=== PATIENT | female | born 1960 | race Caucasian/White ===

== ENCOUNTER 2020-06-03 20:32 | Inpatient (IN) | payer BC ==
[2020-06-03] MEDS ORDERED: Diltiazem 25 MG/5 ML SDV IVPUSH ONE (20:59)
--- NOTE | 2020-06-03 21:17 | EDM.PDOC ---
ED HPI GENERAL MEDICAL PROBLEM - General Chief Complaint: Cardiovascular Problem Stated Complaint: TROUBLE BREATHING Time Seen by Provider: 06/03/20 20:45 Source of Information: Reports: Patient History Limitations: Reports: No Limitations - History of Present Illness INITIAL COMMENTS - FREE TEXT/NARRATIVE: This 59 yo female patient reports to the ED due to increased shortness of breath throughout the day. The patient reports her symptoms have gotten much worse this evening. The patient reports she recently had radiation treatment for breast cancer through [facility] in [place]. Onset: Today Duration: Constant Location: Reports: Chest Quality: Reports: Other Severity: Moderate Improves with: Reports: None Worsens with: Reports: None Context: Reports: Other Associated Symptoms: Reports: Shortness of Breath - Related Data Allergies Allergy/AdvReac Type Severity Reaction Status Date / Time ciprofloxacin Allergy Unknown Hives Verified 06/03/20 21:34 levofloxacin [From Levaquin] Allergy Unknown UNKNOWN Verified 06/03/20 21:34 telithromycin Allergy Unknown Hives Verified 06/03/20 21:34 Home Meds: Home Meds metFORMIN [Glucophage] 12/05/14 [History] Albuterol Sulfate [Proair Hfa] 08/17/18 [History] Fluticasone Furoate [Arnuity Ellipta] 08/17/18 [History] Insulin Aspart [NovoLOG] 08/17/18 [History] Insulin Glarg,Human.Rec.Analog [Lantus Solostar] 08/17/18 [History] Irbesartan 08/17/18 [History] Simvastatin 08/17/18 [History] Aspirin 81 mg PO 06/03/20 [History] Letrozole 06/03/20 [History] Semaglutide [Ozempic] 06/03/20 [History] Simvastatin 40 mg PO 06/03/20 [History] Past Medical History Cardiovascular History: Reports: High Cholesterol, Hypertension Respiratory History: Reports: Asthma Endocrine/Metabolic History: Reports: Diabetes, Type II - Past Surgical History Female Surgical History: Reports: Hysterectomy Social & Family History - Family History Family Medical History: No Pertinent Family History ED ROS GENERAL - Review of Systems Review Of Systems: Comprehensive ROS is negative, except as noted in HPI. ED EXAM, GENERAL - Physical Exam Exam: See Below Exam Limited By: No Limitations General Appearance: Alert, WD/WN, Moderate Distress, Obese Eye Exam: Bilateral Eye: EOMI, Normal Inspection, PERRL Ears: Normal External Exam, Normal Canal, Hearing Grossly Normal, Normal TMs Nose: Normal Inspection, Normal Mucosa, No Blood Throat/Mouth: Normal Inspection, Normal Lips, Normal Teeth, Normal Gums, Normal Oropharynx, Normal Voice, No Airway Compromise Head: Atraumatic, Normocephalic Neck: Normal Inspection, Supple, Non-Tender, Full Range of Motion Respiratory/Chest: No Respiratory Distress, Lungs Clear, Normal Breath Sounds, No Accessory Muscle Use, Chest Non-Tender Cardiovascular: Tachycardia, Irregularly Irregular GI/Abdominal: Normal Bowel Sounds, Soft, Non-Tender, No Organomegaly, No Distention, No Abnormal Bruit, No Mass (Female) Exam: Deferred Rectal (Female) Exam: Deferred Back Exam: Normal Inspection, Full Range of Motion, NT Extremities: Normal Inspection, Normal Range of Motion, Non-Tender, Normal Capillary Refill, No Pedal Edema Neurological: Alert, Oriented, CN II-XII Intact, Normal Cognition, Normal Gait, Normal Reflexes, No Motor/Sensory Deficits Psychiatric: Normal Affect, Normal Mood Skin Exam: Warm, Dry, Intact, Normal Color, No Rash Lymphatic: No Adenopathy #1 Interpretation EKG Date: 06/03/20 Time: 20:44 Rhythm: A-Fib [place]: Normal P-Wave: Variable QRS: Normal ST-T: Normal QT: Normal Comparison: NA - No Prior EKG EKG Interpretation Comments: Intermittent A. Fib with RVR Course - Vital Signs Last Recorded V/S: Last Vital Signs Temp 36.5 C 06/03/20 20:37 Pulse 74 06/03/20 20:37 Resp 26 H 06/03/20 20:37 BP 129/110 H 06/03/20 20:37 Pulse Ox 97 06/03/20 20:37 - Orders/Labs/Meds Orders: Active Orders 24 hr Category Date Time Status Admission Diagnosis [ADT] Urgent ADT 06/03/20 22:01 Ordered Admission Status [Patient Status] [ADT] Routine ADT 06/03/20 22:01 Ordered EKG Documentation Completion [RC] STAT Care 06/03/20 20:48 Ordered CULTURE BLOOD [BC] Stat Lab 06/03/20 20:49 Ordered DRUG SCREEN URINE BIORAD [URCHEM] Stat Lab 06/03/20 20:49 Ordered REFLEX LACTIC ACID YES OR NO [CHEM] Routine Lab 06/03/20 21:34 Received UA RFX DASH AND CULT IF INDIC [URIN] Urgent Lab 06/03/20 20:49 Ordered Diltiazem 125 mg Med 06/03/20 22:00 Ordered Sodium Chloride 0.9% [Normal Saline] 125 ml IV ASDIRECTED Sodium Chloride 0.9% [Normal Saline] 1,000 ml Med 06/03/20 21:56 Ordered IV .BOLUS Medication Orders Sodium Chloride (Normal Saline) 1,000 mls @ 250 mls/hr IV .BOLUS ONE Stop: 06/04/20 01:55 Diltiazem HCl 125 mg/ Sodium (Chloride) 150 mls @ 5 mls/hr IV ASDIRECTED [facility] Labs: Laboratory Tests 06/03/20 06/03/20 06/03/20 Range/Units 20:38 20:38 20:38 WBC 8.6 (5.0-10.0) 10^3/uL RBC 4.76 (4.2-5.4) 10^6/uL Hgb 13.4 (12.0-16.0) g/dL Hct 40.7 (37.0-47.0) % MCV 85.5 (80-100) fL MCH 28.2 (27.0-34.0) pg MCHC 32.9 L (33.0-35.0) g/dL Plt Count 312 (150-450) 10^3/uL Neut % (Auto) 67.4 (42.2-75.2) % Lymph % (Auto) 19.9 L (20.5-50.1) % [place] % (Auto) 10.0 H (2-8) % Eos % (Auto) 2.2 (1.0-3.0) % Baso % (Auto) 0.5 (0.0-1.0) % Sodium 140 (136-145) mmol/L Potassium 3.3 L (3.5-5.1) mmol/L Chloride 99 (98-107) mmol/L Carbon Dioxide 28 (21-32) mmol/L Anion Gap 16.3 H (7-13) mEq/L BUN 20 H (7-18) mg/dL Creatinine 0.81 (0.55-1.02) mg/dL Est Cr Clr Drug Dosing TNP Estimated GFR (MDRD) > 60 BUN/Creatinine Ratio 24.7 (No establ ref range) Glucose 93 (74-99) mg/dL Lactic Acid 2.4 H* (0.4-2.0) mmol/L Calcium 9.4 (8.5-10.1) mg/dL Total Bilirubin 0.3 (0.2-1.0) mg/dL AST 23 (15-37) U/L ALT 52 (14-59) U/L Alkaline Phosphatase 83 (46-116) U/L Troponin I < 0.017 (0.000-0.056) ng/mL Total Protein 7.6 (6.4-8.2) g/dL Albumin 3.9 (3.4-5.0) g/dL Globulin 3.7 Albumin/Globulin Ratio 1.1 Meds: Medications Generic Name Dose Route Start Last Admin Trade Name Freq PRN Reason Stop Dose Admin Sodium Chloride 1,000 mls @ 250 mls/hr 06/03/20 21:56 Normal Saline IV 06/04/20 01:55 .BOLUS ONE Diltiazem HCl 125 mg/ Sodium 150 mls @ 5 mls/hr 06/03/20 22:00 Chloride IV ASDIRECTED ADAM Discontinued Medications Generic Name Dose Route Start Last Admin Trade Name Freq PRN Reason Stop Dose Admin Diltiazem HCl 20 mg 06/03/20 20:59 06/03/20 21:05 Diltiazem 25 Mg/5 Ml Sdv IVPUSH 06/03/20 21:00 20 mg ONETIME ONE Administration - Re-Assessments/Exams Free Text/Narrative Re-Assessment/Exam: 06/03/20 21:22 After Cardizem, the patient's heart rate remained irregularly irregular (A fib) with a heart rate in the 80-90's. The patient's initial blood pressure dropped to a systolic pressure in the 80's. Departure - Departure Time of Disposition: 22:05 Disposition: Admitted As Inpatient 64 Condition: Fair Clinical Impression: Atrial fibrillation with rapid ventricular response Care Plan Goals: Discussed the patient's history, examination, lab results, EKG and treatments with Dr. Escobar. Dr. Escobar accepted the patient for continued evaluation and management as an inpatient at [facility]. Prior to admission, a cardizem drip was started and IV fluids were started on the patient. Sepsis Event Note (ED) - Focused Exam Vital Signs: Vital Signs Temp Pulse Resp BP Pulse Ox 06/03/20 20:37 36.5 C 74 26 H 129/110 H 97 - My Orders Last 24 Hours: My Active Orders 06/03/20 20:48 EKG Documentation Completion [RC] STAT 06/03/20 20:49 CULTURE BLOOD [BC] Stat DRUG SCREEN URINE BIORAD [URCHEM] Stat UA RFX DASH AND CULT IF INDIC [URIN] Urgent 06/03/20 21:34 REFLEX LACTIC ACID YES OR NO [CHEM] Routine 06/03/20 21:56 Sodium Chloride 0.9% [Normal Saline] 1,000 ml IV .BOLUS 06/03/20 22:00 Diltiazem 125 mg Sodium Chloride 0.9% [Normal Saline] 125 ml IV ASDIRECTED 06/03/20 22:01 Admission Diagnosis [ADT] Urgent Admission Status [Patient Status] [ADT] Routine - Assessment/Plan Last 24 Hours: My Active Orders 06/03/20 20:48 EKG Documentation Completion [RC] STAT 06/03/20 20:49 CULTURE BLOOD [BC] Stat DRUG SCREEN URINE BIORAD [URCHEM] Stat UA RFX DASH AND CULT IF INDIC [URIN] Urgent 06/03/20 21:34 REFLEX LACTIC ACID YES OR NO [CHEM] Routine 06/03/20 21:56 Sodium Chloride 0.9% [Normal Saline] 1,000 ml IV .BOLUS 06/03/20 22:00 Diltiazem 125 mg Sodium Chloride 0.9% [Normal Saline] 125 ml IV ASDIRECTED 06/03/20 22:01 Admission Diagnosis [ADT] Urgent Admission Status [Patient Status] [ADT] Routine
[2020-06-03 21:30] LABS: ANION GAP 16.3 mEq/L (7-13); CHLORIDE,CL 99 mmol/L (98-107); SODIUM,NA 140 mmol/L (136-145)
--- NOTE | 2020-06-03 21:52 | CR ---
PROCEDURE INFORMATION: Exam: XR Chest Exam date and time: 06/03/2020 9:22 PM Age: 59 years old Clinical indication: Shortness of breath; Additional info: Short of breath TECHNIQUE: Imaging protocol: XR of the chest Views: 1 view. COMPARISON: CT Chest wo Cont 11/20/2018 2:47 PM FINDINGS: Lungs: Unremarkable. No consolidation. Pleural spaces: Unremarkable. No pleural effusion. No pneumothorax. Heart/Mediastinum: Unremarkable. No cardiomegaly. Bones/joints: Unremarkable. IMPRESSION: No acute findings.
[2020-06-03] MEDS ORDERED: Sodium Chloride 0.9% 1,000 ML IV ONE (21:56)
[2020-06-03] MEDS ORDERED: Diltiazem 125 MG in Sodium Chloride 0.9% 125 ML IV SCH (22:00)
[2020-06-03] MEDS ORDERED: Diltiazem 125 MG in Sodium Chloride 0.9% 100 ML IV SCH (22:15)
[2020-06-03] MEDS ORDERED: Acetaminophen 325 MG Tab PO PRN (23:03)
[2020-06-03] MEDS ORDERED: Sodium Chloride 0.9% 1,000 ML IV SCH (23:15)
--- NOTE | 2020-06-03 23:17 | PCM.HP ---
H&P History of Present Illness - General Date of Service: 06/03/20 Admit Problem/Dx: Admission Diagnosis/Problem Admission Diagnosis/Problem Atrial fibrillation with rapid ventricular response - History of Present Illness Initial Comments - Free Text/Narative: 59F w/ pmh asthma, HT, HL, DM2, DCIS breast ca s/p XRT p/w dyspnea and palpitations. Pt has completed 5 serial daily XRT treatments on Friday. She felt unwell during the treatments but states she kept up her PO intake as usual. She does not remember her VS taken. Tonight she had dinner at her son's and subsequently developed sudden onset dyspnea and chest pounding palpitations. She denies any fevers or pain. ER evaluation found pt in rapid atrial fibrillation w/ HR 150s. - Related Data Allergies/Adverse Reactions: Allergies Allergy/AdvReac Type Severity Reaction Status Date / Time ciprofloxacin Allergy Unknown Hives Verified 06/03/20 21:34 levofloxacin [From Levaquin] Allergy Unknown UNKNOWN Verified 06/03/20 21:34 telithromycin Allergy Unknown Hives Verified 06/03/20 21:34 Home Medications: Home Meds metFORMIN [Glucophage] 12/05/14 [History] Albuterol Sulfate [Proair Hfa] 08/17/18 [History] Fluticasone Furoate [Arnuity Ellipta] 08/17/18 [History] Insulin Aspart [NovoLOG] 08/17/18 [History] Insulin Glarg,Human.Rec.Analog [Lantus Solostar] 08/17/18 [History] Irbesartan 08/17/18 [History] Simvastatin 08/17/18 [History] Aspirin 81 mg PO 06/03/20 [History] Letrozole 06/03/20 [History] Semaglutide [Ozempic] 06/03/20 [History] Simvastatin 40 mg PO 06/03/20 [History] Past Medical History HEENT History: Reports: Impaired Vision Cardiovascular History: Reports: High Cholesterol, Hypertension Respiratory History: Reports: Asthma Genitourinary History: Reports: Other (See Below) Other Genitourinary History: couple episodes of hematuria - no definitive diagnosis PIGMENT PUMPER History: Reports: Psychiatric History: Reports: Anxiety, Depression Endocrine/Metabolic History: Reports: Diabetes, Type II, Obesity/BMI 30+ Oncologic (Cancer) History: Reports: Breast, Other (See Below) Other Oncologic History: endometrial uterine cancer found after hysterectomy. DCIS breast cancer Dermatologic History: Reports: Urticaria Other Dermatologic History: hives from stress - Past Surgical History Female Surgical History: Reports: Hysterectomy Social & Family History - Family History Family Medical History: No Pertinent Family History H&P Review of Systems - Review of Systems: Review Of Systems: See Below General: Denies: Fever, Chills, Diaphoresis HEENT: Denies: Headaches Pulmonary: Reports: Shortness of Breath. Denies: Wheezing, Cough Cardiovascular: Denies: Chest Pain, Orthopnea, Edema Gastrointestinal: Denies: Abdominal Pain, Diarrhea Genitourinary: Denies: Dysuria Musculoskeletal: Denies: Joint Swelling Skin: Denies: Jaundice, Diaphoresis Psychiatric: Denies: Confusion, Anxiety Neurological: Denies: Dizziness Hematologic/Lymphatic: Denies: Easy Bleeding Exam - Exam Exam: See Below - Vital Signs Vital Signs: Last Vital Signs Temp 97.7 F 06/03/20 20:37 Pulse 74 06/03/20 20:37 Resp 26 H 06/03/20 20:37 BP 129/110 H 06/03/20 20:37 Pulse Ox 97 06/03/20 20:37 Weight: 241 lb 12.8 oz - Exam Quality Assessment: No: Supplemental Oxygen General: Alert, Oriented, Cooperative HEENT: Conjunctiva Clear Neck: Supple Lungs: Clear to Auscultation, Normal Respiratory Effort Cardiovascular: Irregular Rhythm GI/Abdominal Exam: Normal Bowel Sounds, Soft, Non-Tender, No Distention Extremities: No Pedal Edema, Other (obese) Skin: Warm, Dry Neurological: Cranial Nerves Intact Neuro Extensive - Mental Status: Alert, Oriented x3 Psychiatric: No: Anxious - Patient Data Lab Results Last 24 hrs: Laboratory Results - last 24 hr 06/03/20 06/03/20 06/03/20 Range/Units 20:38 20:38 20:38 WBC 8.6 (5.0-10.0) 10^3/uL RBC 4.76 (4.2-5.4) 10^6/uL Hgb 13.4 (12.0-16.0) g/dL Hct 40.7 (37.0-47.0) % MCV 85.5 (80-100) fL MCH 28.2 (27.0-34.0) pg MCHC 32.9 L (33.0-35.0) g/dL Plt Count 312 (150-450) 10^3/uL Neut % (Auto) 67.4 (42.2-75.2) % Lymph % (Auto) 19.9 L (20.5-50.1) % [place] % (Auto) 10.0 H (2-8) % Eos % (Auto) 2.2 (1.0-3.0) % Baso % (Auto) 0.5 (0.0-1.0) % Sodium 140 (136-145) mmol/L Potassium 3.3 L (3.5-5.1) mmol/L Chloride 99 (98-107) mmol/L Carbon Dioxide 28 (21-32) mmol/L Anion Gap 16.3 H (7-13) mEq/L BUN 20 H (7-18) mg/dL Creatinine 0.81 (0.55-1.02) mg/dL Est Cr Clr Drug Dosing TNP Estimated GFR (MDRD) > 60 BUN/Creatinine Ratio 24.7 (No establ ref range) Glucose 93 (74-99) mg/dL Lactic Acid 2.4 H* (0.4-2.0) mmol/L Calcium 9.4 (8.5-10.1) mg/dL Total Bilirubin 0.3 (0.2-1.0) mg/dL AST 23 (15-37) U/L ALT 52 (14-59) U/L Alkaline Phosphatase 83 (46-116) U/L Troponin I < 0.017 (0.000-0.056) ng/mL Total Protein 7.6 (6.4-8.2) g/dL Albumin 3.9 (3.4-5.0) g/dL Globulin 3.7 Albumin/Globulin Ratio 1.1 Urine Color (YELLOW) Urine Appearance (CLEAR) Urine pH (5.0-9.0) Ur Specific [place] (1.005-1.030) Urine Protein (NEGATIVE) Urine Glucose (UA) (NEGATIVE) Urine Ketones (NEGATIVE) Urine Occult Blood (NEGATIVE) Urine Nitrite (NEGATIVE) Urine Bilirubin (NEGATIVE) Urine Urobilinogen (0.2-1.0) mg/dL Ur Leukocyte Esterase (NEGATIVE) Urine Opiates Screen (NEGATIVE) Ur Oxycodone Screen (NEGATIVE) Urine Methadone Screen (NEGATIVE) Ur Barbiturates Screen (NEGATIVE) U Tricyclic Antidepress (NEGATIVE) Ur Phencyclidine Scrn (NEGATIVE) Ur Amphetamine Screen (NEGATIVE) U Methamphetamines Scrn (NEGATIVE) Urine MDMA Screen (NEGATIVE) U Benzodiazepines Scrn (NEGATIVE) Urine Cocaine Screen (NEGATIVE) U Marijuana (THC) Screen (NEGATIVE) SARS CoV-2 RNA Rapid GOPI (NEGATIVE) 06/03/20 06/03/20 06/03/20 Range/Units 21:50 21:50 22:24 WBC (5.0-10.0) 10^3/uL RBC (4.2-5.4) 10^6/uL Hgb (12.0-16.0) g/dL Hct (37.0-47.0) % MCV (80-100) fL MCH (27.0-34.0) pg MCHC (33.0-35.0) g/dL Plt Count (150-450) 10^3/uL Neut % (Auto) (42.2-75.2) % Lymph % (Auto) (20.5-50.1) % [place] % (Auto) (2-8) % Eos % (Auto) (1.0-3.0) % Baso % (Auto) (0.0-1.0) % Sodium (136-145) mmol/L Potassium (3.5-5.1) mmol/L Chloride (98-107) mmol/L Carbon Dioxide (21-32) mmol/L Anion Gap (7-13) mEq/L BUN (7-18) mg/dL Creatinine (0.55-1.02) mg/dL Est Cr Clr Drug Dosing Estimated GFR (MDRD) BUN/Creatinine Ratio (No establ ref range) Glucose (74-99) mg/dL Lactic Acid (0.4-2.0) mmol/L Calcium (8.5-10.1) mg/dL Total Bilirubin (0.2-1.0) mg/dL AST (15-37) U/L ALT (14-59) U/L Alkaline Phosphatase (46-116) U/L Troponin I (0.000-0.056) ng/mL Total Protein (6.4-8.2) g/dL Albumin (3.4-5.0) g/dL Globulin Albumin/Globulin Ratio Urine Color Yellow (YELLOW) Urine Appearance Clear (CLEAR) Urine pH 6.0 (5.0-9.0) Ur Specific [place] 1.025 (1.005-1.030) Urine Protein Negative (NEGATIVE) Urine Glucose (UA) Negative (NEGATIVE) Urine Ketones Trace H (NEGATIVE) Urine Occult Blood Negative (NEGATIVE) Urine Nitrite Negative (NEGATIVE) Urine Bilirubin Negative (NEGATIVE) Urine Urobilinogen 0.2 (0.2-1.0) mg/dL Ur Leukocyte Esterase Negative (NEGATIVE) Urine Opiates Screen Negative (NEGATIVE) Ur Oxycodone Screen Negative (NEGATIVE) Urine Methadone Screen Negative (NEGATIVE) Ur Barbiturates Screen Negative (NEGATIVE) U Tricyclic Antidepress Negative (NEGATIVE) Ur Phencyclidine Scrn Negative (NEGATIVE) Ur Amphetamine Screen Negative (NEGATIVE) U Methamphetamines Scrn Negative (NEGATIVE) Urine MDMA Screen Negative (NEGATIVE) U Benzodiazepines Scrn Negative (NEGATIVE) Urine Cocaine Screen Negative (NEGATIVE) U Marijuana (THC) Screen Negative (NEGATIVE) SARS CoV-2 RNA Rapid GOPI Negative (NEGATIVE) Result Diagrams: 06/03/20 20:38 06/03/20 20:38 Tashi Results Last 24 hrs: Microbiology 06/03/20 20:38 Anaerobic Blood Culture - Final Blood - Venous - Iv Start Problem List Initiated/Reviewed/Updated: No Orders Last 24hrs: Active Orders 24 hr Category Date Time Status Admission Diagnosis [ADT] Urgent ADT 06/03/20 22:01 Ordered Admission Status [Patient Status] [ADT] Routine ADT 06/03/20 22:01 Active Patient Status [ADT] Routine ADT 06/03/20 23:03 Active EKG Documentation Completion [RC] STAT Care 06/03/20 20:48 Active Oxygen Therapy [RC] PRN Care 06/03/20 23:03 Active Telemetry Monitoring [Cardiac Monitoring] [RC] . Care 06/03/20 23:12 Active DIRECTED Up ad Lia [RC] ASDIRECTED Care 06/03/20 23:03 Active VTE/DVT Education [RC] PER UNIT ROUTINE Care 06/03/20 23:03 Active Vital Signs [RC] Q4H Care 06/03/20 23:03 Active Consistent Carbohydrate Diet [DIET] Diet 06/04/20 Breakfast Active BASIC METABOLIC PANEL,BMP [CHEM] AM Lab 06/04/20 05:11 Ordered CULTURE BLOOD [BC] Stat Lab 06/03/20 20:38 Results GLYCOSYLATED HEMOGLOBIN,HGBA1C [CHEM] AM Lab 06/04/20 05:11 Ordered LACTIC ACID [CHEM] AM Lab 06/04/20 05:11 Ordered MAGNESIUM [CHEM] AM Lab 06/04/20 05:11 Ordered PHOSPHORUS [CHEM] AM Lab 06/04/20 05:11 Ordered REFLEX LACTIC ACID YES OR NO [CHEM] Routine Lab 06/03/20 21:34 Received TROPONIN I [CHEM] AM Lab 06/04/20 05:11 Ordered TSH ULTRASENSITIVE [CHEM] Stat Lab 06/03/20 23:03 Ordered Acetaminophen [TylenoL] Med 06/03/20 23:03 Active 650 mg PO Q4H PRN Apixaban [Eliquis] Med 06/03/20 23:15 Active 5 mg PO BID Diltiazem 125 mg Med 06/03/20 22:15 Active Sodium Chloride 0.9% [Normal Saline] 100 ml IV TITRATE Sodium Chloride 0.9% [Normal Saline] 1,000 ml Med 06/03/20 21:56 Active IV .BOLUS Sodium Chloride 0.9% [Normal Saline] 1,000 ml Med 06/03/20 23:15 Active IV ASDIRECTED Resuscitation Status Routine Resus Stat 06/03/20 23:03 Ordered Medication Orders Acetaminophen (Acetaminophen 325 Mg Tab) 650 mg PO Q4H PRN PRN Reason: Pain (Mild 1-3)/fever Apixaban (Apixaban 5 Mg Tab) 5 mg PO BID ADAM Sodium Chloride (Normal Saline) 1,000 mls @ 250 mls/hr IV .BOLUS ONE Stop: 06/04/20 01:55 Last Admin: 06/03/20 22:10 Dose: 250 mls/hr Documented by: BALLNOR Diltiazem HCl 125 mg/ Sodium (Chloride) 125 mls @ 5 mls/hr IV TITRATE ADAM; Protocol Last Admin: 06/03/20 22:21 Dose: 5 mg/hr, 5 mls/hr Documented by: BALLNOR Sodium Chloride (Normal Saline) 1,000 mls @ 100 mls/hr IV ASDIRECTED ADAM Assessment/Plan Comment:: #rapid atrial fibrillation - started on cardizem gtt and then converted to sinus tach - pt may have paroxysmal afib - unclear inciting factor - ?dehydration vs XRT - no evidence of infectious process - check TSH - will c/w cardizem and IVF overnight - in am will likely convert on oral BB when her BP meds are out of her system - CHADSVASC score is 3 - ongoing cancer hx increases clotting risk further - will start eliquis and set up for Zio patch upon discharge - a/c may be stopped if monitoring reveals no occult afib - d/w pt extensively and she is in agreement #lactic acidosis - ?dehydration - hold metformin #HT - hold BP meds #DM2 - check A1c PPX - on a/c Full code
[2020-06-03] MEDS: Apixaban 5 MG Tab PO SCH (23:29)
[2020-06-04] MEDS ORDERED: Glucagon,Human Recombinant 1 MG Vial IM PRN (00:37)
[2020-06-04] MEDS ORDERED: Insulin Glarg,Human.Rec.Analog 100 Unit/ML SUBCUT SCH (00:37)
[2020-06-04] MEDS ORDERED: 50% Dextrose in Water 50 ML Syringe IV PRN (00:37)
[2020-06-04 08:08] LABS: HEMOGLOBIN A1C 7.4 % (<5.7)
[2020-06-04 08:19] LABS: ANION GAP 16.1 mEq/L (7-13); CHLORIDE,CL 103 mmol/L (98-107); SODIUM,NA 143 mmol/L (136-145)
[2020-06-04] MEDS ORDERED: Magnesium Sulfate/Water 2 GM/50 ML BAG IV ONE (08:30)
[2020-06-04] MEDS ORDERED: Metoprolol Succinate 25 MG Tab.ER PO SCH (09:00)
[2020-06-04] MEDS: Apixaban 5 MG Tab PO SCH (09:44)
== END 2020-06-04 12:00 | disposition home or self-care (01) | DRG 201 ==
LOC: DL.ED 20:32 → DL.MS 22:01
PROVIDERS: ADMIT Internal Medicine; ATTEND Internal Medicine
DX: I48.91 Unspecified atrial fibrillation (principal); J45.909 Unspecified asthma, uncomplicated; E78.5 Hyperlipidemia, unspecified; I10 Essential (primary) hypertension; E11.9 Type 2 diabetes mellitus without complications; C50.919 Malignant neoplasm of unspecified site of unspecified female breast; H54.7 Unspecified visual loss; E78.00 Pure hypercholesterolemia, unspecified; E66.9 Obesity, unspecified; E87.2 Acidosis; Z90.710 Acquired absence of both cervix and uterus; Z88.1 Allergy status to other antibiotic agents; Z79.899 Other long term (current) drug therapy; Z79.4 Long term (current) use of insulin; Z20.822 Contact with and (suspected) exposure to COVID-19; Z68.38 Body mass index [BMI] 38.0-38.9, adult
CPT/HCPCS: 36415; 71045; 80048; 80053; 80305-QW; 81003; 83036; 83605; 83735; 84100; 84443; 84484; 85025; 87040; 93005; 96374; 99285-25; A9270-GY; J1815-GY; J3475; J3490; J7030; U0002

== ENCOUNTER 2021-01-06 11:22 | Emergency (ER) | payer BC ==
--- NOTE | 2021-01-06 11:34 | EDM.PDOC ---
ED HPI GENERAL MEDICAL PROBLEM - General Chief Complaint: Genitourinary Problem Stated Complaint: [id number] URINATING BLOOD Time Seen by Provider: 01/06/21 11:32 Source of Information: Reports: Patient, RN, RN Notes Reviewed History Limitations: Reports: No Limitations - History of Present Illness INITIAL COMMENTS - FREE TEXT/NARRATIVE: Natty is a 60 y/o female with a history of breast cancer, currently treated with PO chemo, who presents to the ED via personal vehicle with complaints of dysuria, urinary frequency, and hematuria. The patient reports her the dysuria and frequency began two days ago and have progressed in severity since that time. She noted hematuria upon awakening today which caused her to present to the ED today. The patient reports she was treated for a UTI with Macrobid approximately two and a half weeks ago. She denies fever, shaking chills, palpitations, abdominal pain, nausea, vomiting, vaginal discharge, vaginal odor, diarrhea, constipation, hematochezia, or melena. She has taken no medications for her symptoms. The patient denies tobacco, alcohol, or recreational drug use. Perineal Area Pain Score (Numeric/FACES): 6 - Related Data Allergies Allergy/AdvReac Type Severity Reaction Status Date / Time ciprofloxacin Allergy Unknown Hives Verified 01/06/21 11:32 levofloxacin [From Levaquin] Allergy Unknown UNKNOWN Verified 01/06/21 11:32 telithromycin Allergy Unknown Hives Verified 01/06/21 11:32 Home Meds: Home Meds Albuterol Sulfate [Proair Hfa] 2 puff INH Q6H PRN 08/17/18 [History] Fluticasone Furoate [Arnuity Ellipta] 1 puff INH DAILY 08/17/18 [History] Insulin Aspart [NovoLOG] 40 units SQ TID 08/17/18 [History] Insulin Glarg,Human.Rec.Analog [Lantus Solostar] 80 units SUBCUT BEDTIME 08/17/18 [History] Letrozole 2.5 mg PO DAILY 06/03/20 [History] Semaglutide [Ozempic] 1 mg SQ WEEKLY 06/03/20 [History] Simvastatin 40 mg PO BEDTIME 06/03/20 [History] Apixaban [Eliquis] 5 mg PO BID #60 tablet 06/04/20 [Rx] Aspirin [Halfprin] 81 mg PO DAILY 06/04/20 [History] Cholecalciferol (Vitamin D3) [Vitamin D3] 25 mcg PO DAILY 06/04/20 [History] Irbesartan [Avapro] 150 mg PO DAILY #30 tab 06/04/20 [Rx] LORazepam [Ativan] 0.5 mg PO BEDTIME PRN 06/04/20 [History] Vit A/Vit C/Vit E/Zinc/Copper [Eye Multivitamin Tablet] 1 tab PO DAILY 07/04/20 [History] dilTIAZem HCL [Diltiazem ER] 120 mg PO DAILY 07/04/20 [History] Past Medical History HEENT History: Reports: Impaired Vision Cardiovascular History: Reports: High Cholesterol, Hypertension Respiratory History: Reports: Asthma, Sleep Apnea Genitourinary History: Reports: Other (See Below) Other Genitourinary History: couple episodes of hematuria - no definitive diagnosis [employer] History: Reports: Psychiatric History: Reports: Anxiety, Depression Endocrine/Metabolic History: Reports: Diabetes, Type II, Obesity/BMI 30+ Oncologic (Cancer) History: Reports: Breast, Other (See Below) Other Oncologic History: endometrial uterine cancer found after hysterectomy. DCIS breast cancer Dermatologic History: Reports: Urticaria Other Dermatologic History: hives from stress - Past Surgical History Female Surgical History: Reports: Hysterectomy Social & Family History - Family History Family Medical History: No Pertinent Family History - Caffeine Use Caffeine Use: Reports: None ED ROS GENERAL - Review of Systems Review Of Systems: Comprehensive ROS is negative, except as noted in HPI. ED EXAM, RENAL/ - Physical Exam Exam: See Below Exam Limited By: No Limitations General Appearance: Alert, No Apparent Distress Eye Exam: Bilateral Eye: EOMI, Normal Inspection, PERRL (3mm) Ears: Normal External Exam, Hearing Grossly Normal Nose: Normal Inspection, Normal Mucosa, No Blood Throat/Mouth: Normal Inspection, Normal Oropharynx, Normal Voice, No Airway Compromise Head: Atraumatic, Normocephalic Neck: Normal Inspection, Supple, Non-Tender, Full Range of Motion Respiratory/Chest: No Respiratory Distress, Lungs Clear, Normal Breath Sounds, No Accessory Muscle Use, Chest Non-Tender. No: Crackles, Rales, Rhonchi, Wheezing, Stridor Cardiovascular: Normal Peripheral Pulses, Regular Rate, Rhythm, No Gallop, No Murmur, No Rub GI/Abdominal: Normal Bowel Sounds, Soft, Non-Tender, No Distention, No Abnormal Bruit, No Mass, Pelvis Stable. No: Guarding, Rigid, Rebound (Female) Exam: Deferred Rectal (Female) Exam: Deferred Back Exam: Normal Inspection, Full Range of Motion Extremities: Normal Inspection, Normal Range of Motion, Normal Capillary Refill Neurological: Alert, Oriented, CN II-XII Intact, Normal Cognition, Normal Gait, No Motor/Sensory Deficits Psychiatric: Normal Affect, Normal Mood Skin Exam: Warm, Dry, Intact, Normal Color, No Rash. No: Cyanosis, Jaundice, Mottled, Pallor Lymphatic: No Adenopathy Course - Vital Signs Last Recorded V/S: Last Vital Signs Temp 99.2 F 01/06/21 11:32 Pulse 105 H 01/06/21 11:32 Resp 20 01/06/21 11:32 BP 170/93 H 01/06/21 11:32 Pulse Ox 95 01/06/21 11:32 - Orders/Labs/Meds Orders: Active Orders 24 hr Category Date Time Status CULTURE URINE [RM] Stat Lab 01/06/21 11:30 Received Labs: Laboratory Tests 01/06/21 Range/Units 11:30 Urine Color Dark yellow (YELLOW) Urine Appearance Turbid (CLEAR) Urine pH 5.5 (5.0-9.0) Ur Specific [place] >= 1.030 (1.005-1.030) Urine Protein 100 H (NEGATIVE) Urine Glucose (UA) 100 H (NEGATIVE) Urine Ketones 15 H (NEGATIVE) Urine Occult Blood Large H (NEGATIVE) Urine Nitrite Negative (NEGATIVE) Urine Bilirubin Negative (NEGATIVE) Urine Urobilinogen 0.2 (0.2-1.0) mg/dL Ur Leukocyte Esterase Small H (NEGATIVE) Urine RBC Packed H (0-5) /HPF Urine WBC 20-30 H (0-5/HPF) /HPF Ur Epithelial Cells Few (NOT SEEN) /HPF Calcium Oxalate Crystal Moderate H (NOT SEEN) /HPF Urine Bacteria Few (0-FEW/HPF) /HPF - Re-Assessments/Exams Free Text/Narrative Re-Assessment/Exam: 01/06/21 Given high RBCs and calcium oxalate in UA, will obtain CT abdomen/pelvis to r/o lithiasis. Findings of examination, lab work, and imaging reviewed with patient. Will treat UTI with Bactrim DS. Supportive cares for UTI discussed. Patient instructed to follow up with primary care provider in 3-5 regarding todays visit. Red flag signs and symptoms which would warrant immediate reevaluation reviewed. Patient verbalized understanding and agreement with the plan of care. Departure - Departure Time of Disposition: 13:38 Disposition: Home, Self-Care 01 Condition: Fair Clinical Impression: Renal lithiasis, Diverticulosis, Allergic urticaria Urinary tract infection Qualifiers: Urinary tract infection type: acute cystitis Hematuria presence: with hematuria Qualified Code(s): N30.01 - Acute cystitis with hematuria - Discharge Information *PRESCRIPTION DRUG MONITORING PROGRAM REVIEWED*: Not Applicable *COPY OF PRESCRIPTION DRUG MONITORING REPORT IN PATIENT JUSTIN: Not Applicable Instructions: Urinary Tract Infection, Adult Forms: ED Department Discharge Additional Instructions: Rx: Bactrim DS Rx: Medrol Dose Pack 1.) Start your antibiotics today; continue until all pills are gone, even as symptoms improve. 2.) Drink plenty of water to stay hydrated and flush out kidneys and bladder. 3.) You may take Azo or a similar [id number] product. 4.) Follow up with your primary care provider in 3-5 days, sooner should symptoms persist or worsen despite medications. Sepsis Event Note (ED) - Focused Exam Vital Signs: Vital Signs Temp Pulse Resp BP Pulse Ox 01/06/21 11:32 99.2 F 105 H 20 170/93 H 95 - My Orders Last 24 Hours: My Active Orders 01/06/21 11:30 CULTURE URINE [RM] Stat - Assessment/Plan Last 24 Hours: My Active Orders 01/06/21 11:30 CULTURE URINE [RM] Stat
--- NOTE | 2021-01-06 13:17 | CT ---
PROCEDURE INFORMATION: Exam: CT Abdomen And Pelvis Without Contrast Exam date and time: 01/06/2021 12:40 PM Age: 60 years old Clinical indication: Other: Dysuria, hematuria; Prior surgery; Surgery date: 6+ months; Surgery type: Hysterectomy; Patient HX: Breast CA, on chemo; Additional info: R/O renal stones; High rbc; Dysuria; Hematuria TECHNIQUE: Imaging protocol: Computed tomography of the abdomen and pelvis without contrast. Radiation optimization: All CT scans at this facility use at least one of these dose optimization techniques: automated exposure control; mA and/or kV adjustment per patient size (includes targeted exams where dose is matched to clinical indication); or iterative reconstruction. COMPARISON: CT Abdomen Pelvis w Cont 12/08/2014 10:15 AM FINDINGS: Liver: Normal. No mass. Gallbladder and bile ducts: Normal. No calcified stones. No ductal dilation. Pancreas: Normal. No ductal dilation. Spleen: Normal. No splenomegaly. Adrenal glands: Normal. No mass. Kidneys and ureters: A tiny 1 mm stone is present within the lower pole of the left kidney. A low-density lesion is present arising from the upper pole right kidney compatible with a cyst. It measures approximately 2.0 cm in maximum transverse dimension and is stable in appearance when compared to the previous examination. There is no hydronephrosis. No solid renal lesion identified. Stomach and bowel: The stomach and small bowel are decompressed. Few scattered diverticula are present within the sigmoid colon. There is no evidence for diverticulitis. Appendix: The appendix is well seen and is normal in appearance. Intraperitoneal space: Unremarkable. No free air. No significant fluid collection. Vasculature: Unremarkable. No abdominal aortic aneurysm. Lymph nodes: Unremarkable. No enlarged lymph nodes. Urinary bladder: Unremarkable as visualized. Reproductive: The uterus appears to have been removed. Bones/joints: Mild degenerative changes are present within the lumbar spine. No compression fracture or focal lesion. Soft tissues: Unremarkable. IMPRESSION: 1. Tiny calculus within the lower pole left kidney. No hydronephrosis or ureteral calculi present. 2. Status post hysterectomy. 3. Diverticulosis without evidence for active diverticulitis. 4. Stable right upper pole renal cyst. COMMENTS: Consistent with the [employer] [place] [employer]'s Incidental Findings Committee white paper (J Am Santiago Radiol 2018): Any incidental renal lesion less than 1 cm or classified as too small to characterize, or any incidental cystic renal lesion characterized as simple-appearing, is likely benign. No follow-up imaging is recommended for these lesions per consensus recommendations based on imaging criteria.
== END 2021-01-06 13:55 | disposition home or self-care (01) ==
LOC: DL.ED 11:22
DX: N20.0 Calculus of kidney (principal); N30.01 Acute cystitis with hematuria; K57.90 Diverticulosis of intestine, part unspecified, without perforation or abscess without bleeding; L50.0 Allergic urticaria; E78.00 Pure hypercholesterolemia, unspecified; I10 Essential (primary) hypertension; E11.9 Type 2 diabetes mellitus without complications; E66.9 Obesity, unspecified; J45.909 Unspecified asthma, uncomplicated; Z79.82 Long term (current) use of aspirin; Z79.01 Long term (current) use of anticoagulants; Z79.4 Long term (current) use of insulin; Z79.899 Other long term (current) drug therapy; Z88.1 Allergy status to other antibiotic agents; Z68.37 Body mass index [BMI] 37.0-37.9, adult
CPT/HCPCS: 74176; 81001; 87086; 87088; 87186; 99284-25

== ENCOUNTER 2021-02-04 06:56 | Emergency (ER) | payer BC ==
[2021-02-04] MEDS ORDERED: Acetaminophen/HYDROcodone 325-10 MG Tab PO ONE (06:57)
[2021-02-04 08:02] LABS: ANION GAP 13.5 mEq/L (7-13); CHLORIDE,CL 101 mmol/L (98-107); SODIUM,NA 140 mmol/L (136-145)
[2021-02-04] MEDS ORDERED: Ketorolac 30 MG/ML SDV IVPUSH ONE (08:12)
[2021-02-04] MEDS ORDERED: Amoxicillin/Clavulanate K 875-125 MG Tab PO ONE (09:10)
[2021-02-04] MEDS ORDERED: Acetaminophen/HYDROcodone 325-10 MG Tab ONE (09:20)
== END 2021-02-04 09:22 | disposition home or self-care (01) ==
LOC: DL.ED 06:56
DX: K57.30 Diverticulosis of large intestine without perforation or abscess without bleeding (principal); E78.00 Pure hypercholesterolemia, unspecified; I10 Essential (primary) hypertension; E11.9 Type 2 diabetes mellitus without complications; E66.9 Obesity, unspecified; Z88.1 Allergy status to other antibiotic agents; Z79.82 Long term (current) use of aspirin; Z79.01 Long term (current) use of anticoagulants; Z79.4 Long term (current) use of insulin; Z79.899 Other long term (current) drug therapy; Z68.37 Body mass index [BMI] 37.0-37.9, adult
CPT/HCPCS: 36415; 74176; 80053; 81003; 82150; 83605; 83690; 83735; 85025; 96374; 99284; A9270; J1885

== ENCOUNTER 2021-07-14 07:36 | Emergency (ER) | payer BC ==
[2021-07-14] MEDS ORDERED: cefTRIAXone 1 GM, Lidocaine 1% 2.1 ML IM ONE ×2 (08:29)
== END 2021-07-14 08:38 | disposition home or self-care (01) ==
LOC: DL.ED 07:36
DX: N39.0 Urinary tract infection, site not specified (principal); J06.9 Acute upper respiratory infection, unspecified; E78.00 Pure hypercholesterolemia, unspecified; I10 Essential (primary) hypertension; E11.9 Type 2 diabetes mellitus without complications; E66.9 Obesity, unspecified; Z68.37 Body mass index [BMI] 37.0-37.9, adult; Z88.1 Allergy status to other antibiotic agents; Z79.4 Long term (current) use of insulin; Z79.82 Long term (current) use of aspirin; Z79.01 Long term (current) use of anticoagulants; Z79.899 Other long term (current) drug therapy
CPT/HCPCS: 81001; 87086; 87088; 87186; 96372; 99284; J0696; 99283

== ENCOUNTER 2022-11-20 07:17 | Day surgery (SDC) | payer BC ==
[2022-11-20] MEDS ORDERED: Dextrose 5%-0.45% NaCl 1,000 ML IV SCH (07:30)
[2022-11-20] MEDS ORDERED: Midazolam 1 MG/ML 2 ML SDV ONE (07:31)
[2022-11-20] MEDS ORDERED: fentaNYL 100 MCG/2 ML SDV ONE (07:31)
[2022-11-20] MEDS ORDERED: fentaNYL 100 MCG/2 ML SDV IV ONE ×3 (08:17→08:28)
[2022-11-20] MEDS ORDERED: Midazolam 1 MG/ML 2 ML SDV IV ONE ×6 (08:18→08:26)
== END 2022-11-20 09:50 | disposition home or self-care (01) ==
LOC: DL.ENDO 07:17
PROVIDERS: ATTEND Internal Medicine Gastroenterology
DX: Z12.11 Encounter for screening for malignant neoplasm of colon (principal); K64.4 Residual hemorrhoidal skin tags; I10 Essential (primary) hypertension; E66.09 Other obesity due to excess calories; E11.9 Type 2 diabetes mellitus without complications; E78.5 Hyperlipidemia, unspecified; G47.30 Sleep apnea, unspecified; Z88.1 Allergy status to other antibiotic agents; Z98.890 Other specified postprocedural states; Z68.35 Body mass index [BMI] 35.0-35.9, adult
CPT/HCPCS: J2250; J3010; J7042

== ENCOUNTER 2023-07-07 10:05 | Emergency (ER) | payer BC ==
[2023-07-07 10:57] LABS: BASOPHILS PERCENT AUTO 0.2 % (0.0-1.0); EOSINOPHILS PERCENT AUTO 7.3 % (1.0-3.0); HEMATOCRIT 45.1 % (37.0-47.0); HEMOGLOBIN 14.4 g/dL (12.0-16.0); LYMPHOCYTES PERCENT AUTO 13.3 % (20.5-50.1); MEAN CORPUSCULAR HEMOGLOBIN 27.4 pg (27.0-34.0); MEAN CORPUSCULAR HGB CONC 31.9 g/dL (33.0-35.0); MEAN CORPUSCULAR VOLUME 85.9 fL (80-100); MONOCYTES PERCENT AUTO 11.7 % (2-8); NEUTROPHILS PERCENT AUTO 67.5 % (42.2-75.2); PLATELET COUNT,PLT 254 10^3/uL (150-450); RED BLOOD CELL COUNT 5.25 10^6/uL (4.2-5.4)
[2023-07-07 11:10] LABS: A/G RATIO 1.1; ALBUMIN 3.9 g/dL (3.4-5.0); ANION GAP 14.1 mEq/L (7-13); BILIRUBIN TOTAL 0.3 mg/dL (0.2-1.0); BUN/CREATININE RATIO 17.3 (No establ ref range); CALCIUM 9.2 mg/dL (8.5-10.1); CREATININE 0.81 mg/dL (0.55-1.02); EST CRCL DRUG DOSING (CG) 65.69 mL/min; POTASSIUM,K 4.1 mmol/L (3.5-5.1); PROTEIN TOTAL,TP 7.3 g/dL (6.4-8.2)
[2023-07-07] MEDS: Aspirin 81 MG Tab.Chew PO ONE (11:26)
[2023-07-07 12:14] LABS: CORONAVIRUS COVID-19 NAA NEGATIVE (NEGATIVE); INFLUENZA A NAA NEGATIVE (NEGATIVE); INFLUENZA B NAA NEGATIVE (NEGATIVE); RESPIRATORY SYNCYTIAL VIR NAA NEGATIVE (NEGATIVE)
[2023-07-07] MEDS: Clopidogrel 75 MG Tab PO ONE (15:21)
== END 2023-07-07 15:15 | disposition home health service (06) ==
LOC: DL.ED 10:05
DX: R07.89 Other chest pain (principal); R74.8 Abnormal levels of other serum enzymes; I10 Essential (primary) hypertension; I48.91 Unspecified atrial fibrillation; E78.00 Pure hypercholesterolemia, unspecified; Z95.5 Presence of coronary angioplasty implant and graft; E11.9 Type 2 diabetes mellitus without complications; E66.9 Obesity, unspecified; Z88.1 Allergy status to other antibiotic agents; Z86.16 Personal history of COVID-19; Z90.710 Acquired absence of both cervix and uterus; Z79.51 Long term (current) use of inhaled steroids; Z79.4 Long term (current) use of insulin; Z79.01 Long term (current) use of anticoagulants; Z79.899 Other long term (current) drug therapy; Z79.85 Long-term (current) use of injectable non-insulin antidiabetic drugs; Z68.35 Body mass index [BMI] 35.0-35.9, adult
CPT/HCPCS: 0241U; 36415; 71046; 80053; 84484; 85025; 93005; 93010; 99284; 99285; A9270